=== PATIENT | male | born 1970 | race Caucasian/White ===

== ENCOUNTER 2017-02-16 14:01 | Inpatient (IN) | payer OTHER ==
[2017-02-16] MEDS ORDERED: ACETAMINOPHEN 500 MG TAB ONE (14:25)
[2017-02-16] MEDS ORDERED: ACETAMINOPHEN 500 MG TAB PO ONE (14:30)
[2017-02-16] MEDS ORDERED: HYDROmorphONE/DILAUDID 1 MG/ML SYR ONE (14:30)
[2017-02-16] MEDS ORDERED: HYDROmorphONE/DILAUDID 1 MG/ML SYR IVP ONE (14:54)
[2017-02-16] MEDS ORDERED: D5W 1/2 NS W/ 20 KCl/L 1,000 ML IV SCH (15:30)
[2017-02-16 15:39] LABS: % IMMATURE GRANULYOCYTES 0.4 % (0.0-1.1); ABSOLUTE IMMATURE GRANULOCYTES 0.05 10^3/uL (0.00-0.10); ADD DIFF? NO; ADD MORPH? NO; ADD SCAN? NO; ATYPICAL LYMPHOCYTE FLAG 0 (0-99); FRAGMENT RBC FLAG 0 (0-99); HEMATOCRIT 44.4 % (40.0-51.0); HEMOGLOBIN 15.6 g/dL (13.7-17.5); LEFT SHIFT FLG 0 (0-99); LIPEMIA HEMOLYSIS FLAG 90 (0-99); MEAN CELL HEMOGLOBIN 29.9 pg (27.9-34.1); MEAN CELL HEMOGLOBIN CONCENTR. 35.1 g/dL (32.4-36.7); MEAN CELL VOLUME 85.1 fL (81.5-99.8); PLATELET CLUMPS FLAG 0 (0-99); PLATELET COUNT 142 10^3/uL (150-400); RED BLOOD CELL COUNT 5.22 10^6/uL (4.40-6.38); RED CELL DISTRIBUTION WIDTH 11.9 % (11.5-15.2)
[2017-02-16 15:46] LABS: ANION GAP 14 mEq/L (8-16); CALCIUM 9.7 mg/dL (8.5-10.4); CARBON DIOXIDE 20 mEq/l (22-31); CHLORIDE 105 mEq/L (97-110); CREATININE 1.1 mg/dL (0.7-1.3); GLOMERULAR FILTRATION RATE > 60; GLUCOSE 130 mg/dL (70-100); POTASSIUM 4.1 mEq/L (3.5-5.2); SODIUM 139 mEq/L (134-144)
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
[2017-02-16] MEDS ORDERED: BUPIVACAINE/EPI 0.5% 30 ML SDV ONE (17:54)
[2017-02-16] MEDS ORDERED: ceFAZolin 2 GM/DEXTROSE 100 ML IV ONE (21:00)
[2017-02-16] MEDS ORDERED: ceFAZolin 2 GM/DEXTROSE 100 ML IV SCH (22:00)
[2017-02-16] MEDS ORDERED: HYDROmorphONE/DILAUDID 1 MG/ML SYR IVP PRN ×2 (22:12)
[2017-02-16] MEDS ORDERED: fentaNYL 100 MCG/2 ML INJ IVP PRN ×2 (22:12)
[2017-02-16] MEDS ORDERED: NALOXONE HCL 0.4 MG/ML INJ IVP PRN (22:12)
[2017-02-16] MEDS ORDERED: CEFAZOLIN 2 GM/DEXTROSE/100 ML BAG IV ONE (22:14)
--- NOTE | 2017-02-16 22:14 | PDANEPAE ---
ANE History of Present Illness 46yo M for IM Nail Tibia ANE Past Medical History - Cardiovascular History Hx Hypertension: No - Pulmonary History Hx Asthma/Reactive Airway Disease: No Hx Oxygen in Use at Home: No Hx Sleep Apnea: No - Endocrine History Hx Diabetes: No - Chronic Pain History Chronic Pain: No ANE Review of Systems Review of systems is: negative - Exercise capacity Exercise capacity: limited by disability METS (RN): 4 METS ANE Patient History - Allergies Allergies/Adverse Reactions: No Known Allergies Allergy (Unverified 02/16/17 14:08) - Home Medications Home Medications: NK [No Known Home Meds] 02/16/17 [Last Taken Unknown] - NPO status NPO Since - Liquids (Date): 02/16/17 NPO Since - Liquids (Time): 12:00 NPO Since - Solids (Date): 02/16/17 NPO Since - Solids (Time): 12:00 - Smoking Hx Smoking Status: Never smoked ANE Labs/Vital Signs - Labs Result Diagrams: 02/16/17 15:00 02/16/17 15:00 - Vital Signs Blood Pressure: 131/78 Heart Rate: 70 Respiratory Rate: 16 O2 Sat (%): 98 Height: 167.64 cm Weight: 64.864 kg ANE Physical Exam - Airway Mallampati Score: Class 2 Mouth exam: normal dental/mouth exam - Pulmonary Pulmonary: clear to auscultation - Cardiovascular Cardiovascular: regular rate and rhythym - ASA Status ASA Status: I, E
[2017-02-16] MEDS ORDERED: PROPOFOL 200 MG/20 ML VIAL ONE (22:23)
[2017-02-16] MEDS ORDERED: HYDROmorphONE/DILAUDID 2 MG/ML INJ ONE (22:23)
[2017-02-16] MEDS ORDERED: DEXAMETHASONE 4 MG/ML VIAL ONE (22:40)
[2017-02-16] MEDS ORDERED: ONDANSETRON 4 MG/2 ML VIAL ONE (22:40)
[2017-02-16] MEDS ORDERED: LIDOCAINE 2% 5 ML SDV ONE (22:41)
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
[2017-02-16] MEDS ORDERED: SUGAMMADEX SODIUM 200 MG/2 ML VIAL IVP ONE (23:17)
--- NOTE | 2017-02-16 23:40 | POSTANESTH ---
Post Anesthetic Evaluation Cardiovascular Status: Normal, Stable Respiratory Status: Normal, Stable Level of Consciousness/Mental Status: Can Participate in Eval, Mildly Sleepy, Arousable Pain Control: Adequate, Prn Tx Ordered Nausea/Vomiting Control: Adequate, Prn Tx Ordered Complications Possibly Related to Anesthesia: None Noted
[2017-02-17] MEDS: traMADol 50 MG TAB PO PRN ×2 (05:11→13:09)
[2017-02-17] MEDS: ceFAZolin 2 GM/DEXTROSE 100 ML IV SCH ×3 (05:12→21:49)
--- NOTE | 2017-02-17 08:00 | SOAPPROG ---
SOAP Progress Note Assessment/Plan: Assessment: s/p im nail left tib/fib Plan:pt dc home f/u at two weeks 02/17/17 07:59 Subjective: mild pain feels swelling denies numb ting Objective: Vital Signs Temp Pulse Resp BP Pulse Ox 36.8 C 65 12 137/92 H 99 02/17/17 07:16 02/17/17 07:16 02/17/17 07:16 02/17/17 07:16 02/17/17 07:16 02/16/17 02/17/17 02/18/17 05:59 05:59 05:59 Intake Total 2120 Output Total 360 Balance 1760 no evidence of compartment syndrome intact active digital flex and ext toes warm and pink neg homans bilaterally ICD10 Worksheet Patient Problems: Problems Problem Status Onset Fracture of left lower extremity Acute
[2017-02-17] MEDS: oxyCODONE IR 5 MG TAB PO PRN ×5 (08:21→21:49)
[2017-02-17] MEDS: ACETAMINOPHEN 325 MG TAB PO PRN ×2 (08:21→13:08)
[2017-02-17] MEDS: ONDANSETRON 4 MG/2 ML VIAL IVP PRN ×2 (09:30→13:03)
[2017-02-17] MEDS ORDERED: KETOROLAC 30 MG/1 ML SDV ONE (10:31)
[2017-02-17] MEDS: KETOROLAC 30 MG/1 ML SDV IVP SCH ×2 (10:42→16:51)
[2017-02-17] MEDS ORDERED: ONDANSETRON 4 MG/2 ML VIAL ONE (16:27)
[2017-02-17] MEDS ORDERED: ONDANSETRON 4 MG/2 ML VIAL IVP PRN (18:04)
[2017-02-17] MEDS ORDERED: ONDANSETRON DISINTEGRATING 4 MG TAB PO PRN (18:04)
[2017-02-17] MEDS ORDERED: MAGNESIUM HYDROXIDE 30 ML UDCUP PO PRN (18:06)
[2017-02-17] MEDS ORDERED: BISACODYL 10 MG SUPP PR PRN (18:06)
[2017-02-17] MEDS ORDERED: POLYETHYLENE GLYCOL 3350 17 GM PKT PO PRN (18:06)
[2017-02-17] MEDS ORDERED: LACTULOSE 20 GM/30 ML UDCUP PO PRN (18:06)
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
[2017-02-17] MEDS: SENNOSIDES/DOCUSATE SODIUM TAB PO SCH ×2 (19:02→21:49)
[2017-02-18] MEDS: KETOROLAC 30 MG/1 ML SDV IVP SCH ×3 (00:32→11:53)
[2017-02-18] MEDS: oxyCODONE IR 5 MG TAB PO PRN ×3 (02:00→11:52)
[2017-02-18 05:02] VITALS: RESP 16; O2SAT 92
[2017-02-18] MEDS: ceFAZolin 2 GM/DEXTROSE 100 ML IV SCH (06:05)
--- NOTE | 2017-02-18 06:52 | SOAPPROG ---
SOAP Progress Note Assessment/Plan: Assessment: s/p im nail left tib/fib Plan:pt dc home today pain crisis yesterday requiring iv pain meds and additional inpatient stay f/u at two weeks 02/17/17 07:59 02/18/17 06:51 Subjective: pain better some pain over dorsum of foot no cp or sob Objective: Vital Signs Temp Pulse Resp BP Pulse Ox 37.0 C 70 16 113/71 92 02/18/17 04:00 02/18/17 04:00 02/18/17 04:00 02/18/17 04:00 02/18/17 04:00 02/17/17 02/18/17 02/19/17 05:59 05:59 05:59 Intake Total 1250 Output Total 1000 Balance 250 dressing split open compartments swollen nontense intact pf,df,ehl toes warm and pink sensation intact throughout neg homans ICD10 Worksheet Patient Problems: Problems Problem Status Onset Fracture of left lower extremity Acute
[2017-02-18 07:34] VITALS: BP 125/83; PULSE 71; TEMP 98.8
[2017-02-18] MEDS: SENNOSIDES/DOCUSATE SODIUM TAB PO SCH (08:57)
[2017-02-18] MEDS: ACETAMINOPHEN 325 MG TAB PO PRN (08:57)
== END 2017-02-18 13:11 | disposition home or self-care (01) | DRG 940 ==
LOC: EDUNIT# → F3N 16:56 → OBSVTOIN 02-17 16:18
PROVIDERS: ADMIT Orthopaedic Surgery; ATTEND Orthopaedic Surgery
PROC: 0QSH06Z Reposition Left Tibia with Intramedullary Internal Fixation Device, Open Approach (ICD-10-PCS; principal; 2017-02-16 21:00)
DX: G89.18 Other acute postprocedural pain (principal); S82.202A Unspecified fracture of shaft of left tibia, initial encounter for closed fracture; S82.402A Unspecified fracture of shaft of left fibula, initial encounter for closed fracture; V18.0XXA Pedal cycle driver injured in noncollision transport accident in nontraffic accident, initial encounter; Y93.55 Activity, bike riding; Y92.828 Other wilderness area as the place of occurrence of the external cause
CPT/HCPCS: 96374; 97116-GP; 97161-GP; C1713; C1769; G0378; J0690; J1100; J1170; J1885; J2405; J2704

== ENCOUNTER → 2017-03-28 | Outpatient (CLI) | payer OTHER | LOC: BMCIMAGING 09:09 | PROVIDERS: ATTEND Physician Assistant | DX: S89.102D Unspecified physeal fracture of lower end of left tibia, subsequent encounter for fracture with routine healing (principal); S89.302D Unspecified physeal fracture of lower end of left fibula, subsequent encounter for fracture with routine healing ==

== ENCOUNTER → 2017-05-09 | Outpatient (CLI) | payer OTHER | LOC: BMCIMAGING 09:03 | PROVIDERS: ATTEND Physician Assistant | DX: S82.392D Other fracture of lower end of left tibia, subsequent encounter for closed fracture with routine healing (principal); S82.402D Unspecified fracture of shaft of left fibula, subsequent encounter for closed fracture with routine healing ==

== ENCOUNTER → 2017-07-11 | Outpatient (CLI) | payer OTHER | LOC: BMCIMAGING 09:16 | PROVIDERS: ATTEND Physician Assistant | DX: Z09 Encounter for follow-up examination after completed treatment for conditions other than malignant neoplasm (principal); S82.202A Unspecified fracture of shaft of left tibia, initial encounter for closed fracture ==